=== PATIENT | female | born 1995 | race Caucasian/White ===

== ENCOUNTER 2021-08-27 15:53 | Outpatient (CLI) | payer BC, SELFPAY | END 2021-08-27 15:54 | disposition home or self-care (01) | LOC: LAB 15:58 | PROVIDERS: PCP Family Medicine; Visit Provider Clinical Nurse Specialist Adult Health | DX: Z11.8 Encounter for screening for other infectious and parasitic diseases (principal) | CPT/HCPCS: 87207 ==

== ENCOUNTER 2024-05-22 02:51 | Observation (INO) | payer SELFPAY ==
[2024-05-22] VITALS (27 sets, daily range): BP systolic 65–120; BP diastolic 42–74; PULSE 59–88; RESP 12–24; TEMP 36.2–36.8; O2SAT 92–100; BMI 20.9
--- NOTE | 2024-05-22 03:19 | USR_ITS ---
PROCEDURE INFORMATION: Exam: US Duplex Artery and Vein of the Abdominal and/or Reproductive Organs, Complete Exam date and time: 05/22/2024 4:50 AM Age: 29 years old Clinical indication: complicated by abdominal or pelvic pain; Lower; First trimester (<14 weeks 0 days); Gestational age or lmp: 13; Additional info: Pelvic pain, vag bleeding, TECHNIQUE: Imaging protocol: Real-time duplex ultrasound scan of the arterial and venous flow of the abdominal and/or reproductive organs with B-mode, color Doppler flow and spectral waveform analysis with image documentation. Exam focused on the region of clinical concern. Complete exam. Duplex exam was performed to evaluate for vascular conditions. COMPARISON: No relevant prior studies available. FINDINGS: No visible intra or extrauterine gestational sac. The endometrial echo complex is thickened and inhomogeneous in appearance, measuring up to 29 mm in thickness. Some of this appearance is likely secondary to blood/clot in the endometrial canal. Provided Color Doppler images do appear to show some areas of increased blood flow within the endometrium. Therefore, if the overall appearance is determined to represent a miscarriage, these findings could indicate retained products of conception. Clinical correlation needed. Cervical length evaluated with endovaginal scanning measures 3.0 cm. No definite cervical canal dilation on the provided images. There is a mild to moderate amount of free pelvic fluid, some of the fluid is fairly echogenic. There is a more complex appearing fluid in the cul-de-sac, measuring up to 3.5 cm in diameter. While nonspecific, this could represent blood/clot. The right ovary measures 24 x 15 x 18 mm, estimated volume 3.4 cc. The left ovary measures 25 x 16 x 20 mm, estimated volume 4.2 cc. Both ovaries appear essentially unremarkable. Ovarian blood flow was evaluated with color and spectral Doppler imaging. Arterial and venous blood flow detected within each ovary. Resistance index in the right ovary is 0.57. Resistance index in the left ovary is 0.60. The sonographic appearance alone is nonspecific. The differential diagnosis includes; an early viable intrauterine less than four to five weeks gestation; a miscarriage; as well as an occult ectopic . Close/appropriate clinical follow up, including HCG level follow-up is recommended. The urinary bladder was not completely evaluated/imaged at this time. PROCEDURE INFORMATION: Exam: US First Trimester, Transabdominal and US , Transvaginal Exam date and time: 05/22/2024 4:50 AM Age: 29 years old Clinical indication: complicated by abdominal or pelvic pain; Lower; First trimester (<14 weeks 0 days); Gestational age or lmp: 13; Additional info: Pelvic pain, vag bleeding, LABS AND CLINICAL REPORTS: Gestational age (Established): 13 w 0 d Estimated due date (Established): 11/27/2024 TECHNIQUE: Imaging protocol: Real-time transabdominal obstetrical ultrasound of the maternal pelvis and a first trimester , less than 14 weeks 0 days, with image documentation. Transvaginal imaging was used for better evaluation of the fetus, adnexa, and/or cervix. COMPARISON: No relevant prior studies available. FINDINGS: No visible intra or extrauterine gestational sac. The endometrial echo complex is thickened and inhomogeneous in appearance, measuring up to 29 mm in thickness. Some of this appearance is likely secondary to blood/clot in the endometrial canal. Provided Color Doppler images do appear to show some areas of increased blood flow within the endometrium. Therefore, if the overall appearance is determined to represent a miscarriage, these findings could indicate retained products of conception. Clinical correlation needed. Cervical length evaluated with endovaginal scanning measures 3.0 cm. No definite cervical canal dilation on the provided images. There is a mild to moderate amount of free pelvic fluid, some of the fluid is fairly echogenic. There is a more complex appearing fluid in the cul-de-sac, measuring up to 3.5 cm in diameter. While nonspecific, this could represent blood/clot. The right ovary measures 24 x 15 x 18 mm, estimated volume 3.4 cc. The left ovary measures 25 x 16 x 20 mm, estimated volume 4.2 cc. Both ovaries appear essentially unremarkable. Ovarian blood flow was evaluated with color and spectral Doppler imaging. Arterial and venous blood flow detected within each ovary. Resistance index in the right ovary is 0.57. Resistance index in the left ovary is 0.60. The sonographic appearance alone is nonspecific. The differential diagnosis includes; an early viable intrauterine less than four to five weeks gestation; a miscarriage; as well as an occult ectopic . Close/appropriate clinical follow up, including HCG level follow-up is recommended. The urinary bladder was not completely evaluated/imaged at this time. US/US OB <=14 wk fetus w transvag IMPRESSION: 1. No visible intra or extrauterine gestational sac. 2. Thickened and inhomogeneous endometrial echo complex, see additional details above. 3. Mild to moderate amount of somewhat echogenic free pelvic fluid, with more complex fluid/blood/clot suspected in the cul-de-sac. 4. See above discussion and recommendations. 5. Unremarkable ovaries. 6. Blood flow detected in each ovary. 7. Other details discussed above.
--- NOTE | 2024-05-22 03:20 | W.ED.PREGNAN ---
HPI - General: Chief complaint: OB/Uterine Contractions Stated complaint: Possible miscarage Bleed 12weeks Time Seen by Provider: 05/22/24 03:19 History of Present Illness: 29-year-old female G2, P1 at 12 weeks of . She was told on 05/09 via ultrasound that she did not have heart tones and that she was going to miscarry. She started bleeding 5 to 6 hours ago, quite heavily. She is having intense contractions at this point. She is feeling nauseated, faint, like she will pass out. Date of Last Menstrual Period: 02/22/24 Related Data Home Medications ?Medication ?Instructions ?Recorded ?Confirmed No Known Home Medications 12/02/23 12/02/23 Allergies Allergy/AdvReac Type Severity Reaction Status Date / Time No Known Allergies Allergy Verified 05/22/24 03:02 PFS ED PFSH: Social History Smoking and tobacco/nicotine status: never used tobacco/nicotine Female Reproductive History: Date of last menstrual period: 02/22/24 Physical Exam Const: GENERAL APPEARANCE: cooperative and ill appearing (Mildly) ORIENTATION/CONSCIOUSNESS: Yes awake, Yes oriented to person, Yes oriented to place and Yes oriented to time HENMT: COMMON NORMALS: normocephalic, atraumatic and Normal external nose present HEAD & SCALP: normocephalic and atraumatic FACE & SINUS: normal facial exam NOSE: Normal external nose present Eye: COMMON NORMALS: Equal, round and reactive pupils present and EOMs intact bilaterally PUPIL: Yes Equal, round and reactive pupils present Neck/C-Spine: GENERAL: Yes trachea midline Chest: CHEST: Yes Symmetrical chest wall rise Resp: COMMON NORMALS: normal respiratory effort, No use of accessory muscles and clear to auscultation bilaterally AUSCULTATION: clear to auscultation bilaterally Cardio: COMMON NORMALS: regular rate and regular rhythm RATE: regular rate RHYTHM: regular rhythm GI: COMMON NORMALS: Soft to palpation PALPATION: Yes Soft to palpation Neuro: SENSORIUM/ORIENTATION: Yes oriented to person, Yes oriented to place and Yes oriented to time Course Vital Signs: Vital signs: Vital Signs Temperature 98.3 F 05/22/24 02:56 Pulse Rate 63 05/22/24 04:01 Respiratory Rate 19 H 05/22/24 04:01 Blood Pressure 88/48 05/22/24 04:01 Pulse Oximetry 99 05/22/24 04:01 Oxygen Delivery Me thod Room Air 05/22/24 02:56 MDM - OB/Uterine Contractions Medical Decision Making This patient had a significant episode of vagal syncope, with heart rates in the mid 40s, and a blood pressure briefly of 50/20. Blood pressure and heart rate have normalized. Heart rates in the 60s now, with blood pressures in the mid 80s systolic. Hemoglobin is 13.5. White blood cell count is 10.3. Coags are normal. Large amounts of clot removed from vaginal vault on pelvic examination. Ultrasound shows quite a bit of fluid still present in the uterus. She is having strong contractions. With several episodes of hypotension here, and continued soft pressures despite 2 L bolus, she will be observed. Gynecology agrees to accept the patient for observation today. Lab Data 05/22/24 03:10 05/22/24 03:10 Laboratory Results WBC 10.37 10^3/uL (3.29-11.43) 05/22/24 03:10 RBC 4.34 10^6/uL (3.85-5.65) 05/22/24 03:10 Hgb 13.50 g/dL (11.27-16.99) 05/22/24 03:10 Hct 39.6 % (36-47) 05/22/24 03:10 MCV 91.2 fl (85-98) 05/22/24 03:10 MCH 31.1 pg (27-33) 05/22/24 03:10 MCHC 34.1 g/dL (30-55) 05/22/24 03:10 RDW 11.9 % (12.1-15.1) L 05/22/24 03:10 Plt Count 312 10^3/cmm (157-399) 05/22/24 03:10 MPV 9.6 fL (7.4-10.4) 05/22/24 03:10 Neut % (Auto) 76.7 % 05/22/24 03:10 Lymph % (Auto) 18.1 % 05/22/24 03:10 [place] % (Auto) 3.4 % 05/22/24 03:10 Eos % (Auto) 1.2 % 05/22/24 03:10 Baso % (Auto) 0.3 % 05/22/24 03:10 Neut # (Auto) 7.96 10^3/uL (1.8-7.7) H 05/22/24 03:10 Lymph # (Auto) 1.9 10^3/uL (0.8-4.8) 05/22/24 03:10 [place] # (Auto) 0.4 10^3/uL (0.2-0.9) 05/22/24 03:10 Eos # (Auto) 0.1 10^3/uL (0.0-0.8) 05/22/24 03:10 Baso # (Auto) 0.0 10^3/uL (0.0-0.1) 05/22/24 03:10 Nucleated RBC % (auto) 0 % 05/22/24 03:10 Nucleated RBCs # 0.0 /100WBC 05/22/24 03:10 PT 12.20 SECONDS (12.1-14.9) 05/22/24 03:10 INR 0.84 (0.8-1.2) 05/22/24 03:10 APTT 29.2 SECONDS (23.9-36.7) 05/22/24 03:10 Sodium 133 mmol/L (136-145) L 05/22/24 03:10 Potassium 3.8 mmol/L (3.5-5.1) 05/22/24 03:10 Chloride 98 mmol/L (98-107) 05/22/24 03:10 Carbon Dioxide 22 mmol/L (22-29) 05/22/24 03:10 Anion Gap 16.8 (5-19) 05/22/24 03:10 BUN 14 mg/dL (6-20) 05/22/24 03:10 Creatinine 0.6 mg/dL (0.5-0.9) 05/22/24 03:10 GFR Calculation 119.9 mL/min (90-130) 05/22/24 03:10 Glucose 115 mg/dL (65-115) 05/22/24 03:10 Calculated Osmolality 277 mOsm/kg (285-295) L 05/22/24 03:10 Calcium 9.3 mg/dL (8.5-10.5) 05/22/24 03:10 Total Bilirubin 0.2 mg/dL (0.15-1.2) 05/22/24 03:10 AST 16 U/L (0-32) 05/22/24 03:10 ALT 14 U/L (0-33) 05/22/24 03:10 Alkaline Phosphatase 83 U/L (35-105) 05/22/24 03:10 Total Protein 6.9 g/dL (6.6-8.7) 05/22/24 03:10 Albumin 4.4 g/dL (3.5-5.2) 05/22/24 03:10 Globulin 2.5 g/dL (1.3-4.6) 05/22/24 03:10 Ser , Semi-Qnt 3539.00 mIU/mL 05/22/24 03:10 Urine Color Red (Yellow) A 05/22/24 03:10 Urine Appearance Turbid (CLEAR) A 05/22/24 03:10 Urine pH Not Reportable 05/22/24 03:10 Ur Specific [place] Not Reportable 05/22/24 03:10 Urine Protein Not Reportable 05/22/24 03:10 Urine Glucose (UA) Not Reportable 05/22/24 03:10 Urine Ketones Not Reportable 05/22/24 03:10 Urine Blood Not Reportable 05/22/24 03:10 Urine Nitrate Not Reportable 05/22/24 03:10 Urine Bilirubin Not Reportable 05/22/24 03:10 Urine Urobilinogen Not Reportable 05/22/24 03:10 Ur Leukocyte Esterase Not Reportable 05/22/24 03:10 Urine RBC Too numerous to cnt /hpf (0-2) H 05/22/24 03:10 Urine WBC 0-4 /hpf (0-5) H 05/22/24 03:10 Ur Squamous Epith Cells 0-4 /hpf (0-5) H 05/22/24 03:10 Amorphous Sediment Not Reportable 05/22/24 03:10 Urine Bacteria Trace /hpf (NONE) 05/22/24 03:10 Blood Type O Positive 05/22/24 03:10 Rho(D) Type Rh positive 05/22/24 03:10 Antibody Screen Negative 05/22/24 03:10 XR interpretation done by ED provider, pending radiology final review Discharge Plan Discharge Patient Disposition: Placed in Observation Clinical Impression: Incomplete , Acute hypotension Condition: Stable Prescriptions: No Action No Known Home Medications Referrals: Oli Roche, [Primary Care Provider] - Print Language: Hebrew Coding Level of Care Code ED Felt Dyeing Machine Tender for Krystian Terry
[2024-05-22 03:24] LABS: Add Urine Microscopic? NO
[2024-05-22 03:25] LABS: Basophils % 0.3 %; Eosinophils # 0.1 10^3/uL (0.0-0.8); Eosinophils % 1.2 %; Hematocrit 39.6 % (36-47); Lymphocytes # 1.9 10^3/uL (0.8-4.8); Lymphocytes % 18.1 %; Mean Corpuscular HGB Conc 34.1 g/dL (30-55); Mean Corpuscular Hemoglobin 31.1 pg (27-33); Mean Corpuscular Volume 91.2 fl (85-98); Mean Platelet Volume 9.6 fL (7.4-10.4); Monocytes # 0.4 10^3/uL (0.2-0.9); Monocytes % 3.4 %; Neutrophils # 7.96 10^3/uL (1.8-7.7); Neutrophils % 76.7 %; Nucleated Red Blood Cells % 0 %; Platelet Count 312 10^3/cmm (157-399); Red Blood Count 4.34 10^6/uL (3.85-5.65); Red Cell Distribution Width 11.9 % (12.1-15.1); White Blood Count 10.37 10^3/uL (3.29-11.43)
[2024-05-22 03:31] LABS: INR 0.84 (0.8-1.2); Partial Thromboplastin Time 29.2 SECONDS (23.9-36.7)
[2024-05-22] MEDS: sodium chloride 0.9% 1,000 ML 999 ML IV (03:37)
[2024-05-22] MEDS: ondansetron 2 mg/ML SDV 2 mL 4 MG IVP (03:37)
[2024-05-22] MEDS: ketorolac 30 mg/mL INJ IVP (03:37)
[2024-05-22 03:38] LABS: Add Urine Culture? Yes; Bacteria Urine TRACE /hpf; RBC Urine TOO NUMEROUS TO CNT /hpf (0-2); Squamous Epithelial Cell Urine 0-4 /hpf (0-5); Urine Appearance Turbid (CLEAR); Urine Color Red (Yellow); WBC Urine 0-4 /hpf (0-5)
[2024-05-22 03:39] LABS: Charge for UA Resulting for Rev
[2024-05-22 03:48] LABS: Alanine Aminotransferase 14 U/L (0-33); Albumin Level 4.4 g/dL (3.5-5.2); Alkaline Phosphatase 83 U/L (35-105); Anion Gap 16.8 (5-19); Aspartate Amino Transferase 16 U/L (0-32); Blood Urea Nitrogen 14 mg/dL (6-20); Calcium 9.3 mg/dL (8.5-10.5); Carbon Dioxide 22 mmol/L (22-29); Chloride 98 mmol/L (98-107); Creatinine Clr Calc Pharmacy 131.5503; Globulin 2.5 g/dL (1.3-4.6); Glomerular Filtration Rate 119.9 mL/min (90-130); Glucose 115 mg/dL (65-115); Osmolality Calculated 277 mOsm/kg (285-295); Potassium 3.8 mmol/L (3.5-5.1); Sodium 133 mmol/L (136-145); Total Bilirubin 0.2 mg/dL (0.15-1.2); Total Protein 6.9 g/dL (6.6-8.7)
--- NOTE | 2024-05-22 04:21 | PC.NURSE ---
The nurse entered the room and observed that the patient appeared pallid and tremulous. The blood pressure measured 50/20. The registered nurse notified the physician. The patient was positioned in Trendelenburg, a second intravenous line was inserted, and 2 liters of fluid were administered by pressure bag.
--- NOTE | 2024-05-22 04:45 | PC.NURSE ---
The patient reports that she was 9 weeks and was informed during her last obstetric appointment that the fetus did not have?a heartbeat. The patient reports being informed of a potential miscarriage approximately two weeks ago on the and has now experienced significant bleeding this evening starting approx. 21:00. The patient is experiencing cramping as well. The patient was examined by midwives from [facility], who conducted an ultrasound that indicated she was experiencing a miscarriage.
[2024-05-22] MEDS: morphine 4 mg/mL SDV 1 mL IVP (04:54)
--- NOTE | 2024-05-22 05:51 | PC.NURSE ---
I prepared the room for a vaginal examination. Dr. Dempsey successfully excised multiple substantial tissue masses from the uterine orifice. Upon completion, I cleansed the patient and provided fresh blankets, while also removing any waste from the room, including soiled blankets stained with blood.
[2024-05-22] MEDS: fentaNYL 50 mcg/mL INJ 2mL IVP (05:54)
--- NOTE | 2024-05-22 09:32 | P.HP_ITS ---
Providers/Chief Complaint 2 Admitting Physician: Lupis Soriano DO Primary Care Provider: Oli Roche DO Chief Complaint: Possible miscarage Bleed 12weeks HPI ASSISTANT NEWS DIRECTOR History of Present Illness Valentín Ty is a 29 year old female G2, P1 admitted observation to labor and delivery after ER visit. LMP 02/22/2024 with ZARA 11/19/2024 by early outside ultrasound. Patient states at that time of ultrasound at a [facility] facility she was 9 weeks gestation with no heart activity being noted. Patient states she started bleeding heavily yesterday at 9 PM. She complains of passing large clots with her heavy flow with cramping. While being seen in the ER here at [facility] patient had several low blood pressure and near syncopal episodes. She was treated with IV fluids. Treatment options of waiting on spontaneous passage of clots and possible remaining products versus D&C to clear the uterus of clots and possible remaining products of conception have been reviewed in great detail with patient and . Ultrasound results of no viable noted but increased endometrial thickness and much blood and clots noted. Patient elects to proceed with D&C. Risk of bleeding, infection, perforation of the uterus have been reviewed. Possibility of pelvic organ injury if perforation occurs also reviewed. Patient understands and consents for procedure. Present Details Date of Last Menstrual Period: 02/22/24 Calculated Date of Delivery: 11/28/24 Gestational Age Based on Last Menstrual Period: 12 Review of Systems 2 General: Reports: 10 or more systems reviewed and unremarkable except in HPI and below Narrative: 29-year-old female awake and alert and o riented. Answers questions appropriately. Patient denies fever chills. Medications/Allergies Home Medications ?Medication ?Instructions ?Recorded ?Confirmed ?Last Taken ?Type No Known Home Medications 12/02/2311/13 Unknown History Allergies Allergy/AdvReac Type Severity Reaction Status Date / Time No Known Allergies Allergy Verified 05/22/24 03:02 PFS ASSISTANT NEWS DIRECTOR 2 [facility]: Medical History (Updated 05/22/24 @ 09:42 by Lupis Soriano DO) Incomplete Social History Smoking and tobacco/nicotine status: never used tobacco/nicotine Other Female Reproductive History: Date of Last Menstrual Period: 02/22/24 Menstrual flow: normal/abnormal: normal Sexual History: STD History Comment: None History History History 2 2 Term 1 Miscarriages/Ectopic 1 Living Children 1 Vitals/I&O/Wt Last Vital Signs Temp 98.1 F 05/22/24 06:52 Pulse 68 05/22/24 06:52 Resp 18 05/22/24 06:52 BP 101/59 05/22/24 06:55 Pulse Ox 96 05/22/24 06:52 O2 Del Method Room Air 05/22/24 06:52 05/21/24 05/22/24 05/22/24 22:59 06:59 14:59 Intake Total 0 / 0 Balance 0 / 0 Weight last 48 hrs Weight 58.967 kg Physical Exam 2 Narrative: 29-year-old female alert and orient x 3 no acute distress. HENMT: COMMON NORMALS: normocephalic, moist oral mucous membranes and dentition normal Resp: COMMON NORMALS: normal respiratory effort and clear to auscultation bilaterally Cardio: COMMON NORMALS: S1 normal heart sound present, S2 normal heart sound present and No murmurs present (Cardio) Data 05/22/24 03:10 05/22/24 03:10 Results Labs OB ([facility]): 2 Obstetrics US 05/22/24 Blood Type O Positive 05/22/24 Antibody Screen Negative 05/22/24 Hct 39.6 % (36-47) 05/22/24 Hgb 13.50 g/dL (11.27-16.99) 05/22/24 Rho(D) Type Rh positive 05/22/24 Plt Count 312 10^3/cmm (157-399) 05/22/24 Ser , Semi-Qnt 3539.00 mIU/mL 05/22/24 Micro Urine Specimen 05/22/24 A&P Assessment and plan (1) 9 weeks gestation of : Nonviable 9-week gestation documented by outside ultrasound ([facility]) (2) Acute hypotension: (3) Incomplete : Schedule D&C in the OR. PDMP PDMP Reviewed: Not Reviewed Attestations 2 Medical Necessity Statement*: Patient admitted observation to OB for D&C for incomplete AB, (ultrasound documented) Coding Level of Care Code Acute Code for Chg Fwd Diagnoses 9 weeks gestation of Z3A.09 Acute hypotension I95.9 Incomplete O03.4
--- NOTE | 2024-05-22 09:42 | ANES.PREANE2 ---
Pre-Anesthetic Assessment Height/Weight: Height 1.68 m Weight 58.967 kg Temp Pulse Resp BP Pulse Ox O2 Del Method 98.1 F 68 18 101/59 96 Room Air 05/22/24 06:52 05/22/24 06:52 05/22/24 06:52 05/22/24 06:55 05/22/24 06:52 05/22/24 06:52 Operation Date: 05/22/24 10:40 Proposed Procedures p Dilation And Curettage (D&C)(Not Applicable) - Lupis Soriano DO Familial anesthetic complications: None Was Beta Pedro taken within 24 hours: N/A Was Clonidine taken within 24 hours: N/A Last intake: > 8hrs Social No alcohol and No tobacco Exam alert, oriented x 3, clear to auscultation bilaterally and regular rate & rhythm Airway Mallampati: Class I Dentition: full Anesthetic Plan ASA status: 1E Anesthesia: General Risk of > 500 ml blood loss (7ml/kg in children): No Medications/Allergies Home Medications ?Medication ?Instructions ?Recorded ?Confirmed ?Last Taken ?Type No Known Home Medications 12/02/23 12/02/23 Unknown History Allergies Allergy/AdvReac Type Severity Reaction Status Date / Time No Known Allergies Allergy Verified 05/22/24 03:02 [facility] Anesthesia Medical History (Updated 05/22/24 @ 09:42 by Lupis Soriano DO) Incomplete Social History Smoking and tobacco/nicotine status: never used tobacco/nicotine Female Reproductive History Date of last menstrual period: 02/22/24 Data Anesthesia 05/22/24 03:10 05/22/24 03:10 Short CBC 05/22/24 Range/Units 03:10 WBC 10.37 (3.29-11.43) 10^3/uL Hgb 13.50 (11.27-16.99) g/dL Hct 39.6 (36-47) % MCV 91.2 (85-98) fl Plt Count 312 (157-399) 10^3/cmm Neut % (Auto) 76.7 % Neut # (Auto) 7.96 H (1.8-7.7) 10^3/uL BMP 05/22/24 03:10 Sodium 133 L Potassium 3.8 Chloride 98 Carbon Dioxide 22 BUN 14 Creatinine 0.6 Glucose 115 Calcium 9.3 Liver Function 05/22/24 Range/Units 03:10 Total Bilirubin 0.2 (0.15-1.2) mg/dL AST 16 (0-32) U/L ALT 14 (0-33) U/L Alkaline Phosphatase 83 (35-105) U/L Albumin 4.4 (3.5-5.2) g/dL Urine 05/22/24 Range/Units 03:10 Urine Color Red A (Yellow) Urine Appearance Turbid A (CLEAR) Urine pH Not Reportable Ur Specific [place] Not Reportable Urine Protein Not Reportable Urine Glucose (UA) Not Reportable Urine Ketones Not Reportable Urine Nitrate Not Reportable Urine Bilirubin Not Reportable Ur Leukocyte Esterase Not Reportable Urine RBC Too numerous to cnt H (0-2) /hpf Urine WBC 0-4 H (0-5) /hpf Blood Bank 05/22/24 03:10 Blood Type O Positive Rho(D) Type Rh positive Antibody Screen Negative Coags 05/22/24 03:10 PT 12.20 INR 0.84 APTT 29.2 Cardiac Studies: No Data to Display
[2024-05-22] MEDS: sodium chloride 0.9% 1,000 ML 30 ML IV (09:59)
[2024-05-22] MEDS: ceFAZolin 2,000 mg SDV 2000 MG IVP (11:05)
--- NOTE | 2024-05-22 11:44 | PM.OP ---
Operative Report Date of procedure: May 22, 2024 Pre-op diagnosis: 1. 9-week incomplete 2. Acute blood loss 3. Hypotensive episode in the emergency room Post-op diagnosis: Incomplete Post-op findings: Incomplete with intrauterine products noted Procedure done: Suction D&C Specimens removed/disposition: Products of conception Surgeon: Lupis Soriano DO Anesthesia: General Estimated blood loss (mL): 50 Complications: None Findings: Products of conception Condition: stable Disposition: floor Brief History: 29-year-old female G2, P1 Ab1 seen in the emergency room for consultation for incomplete AB. Patient was seen in the emergency room with complaints of excessive vaginal bleeding. Patient had a outside OB ultrasound that documented a 9-week gestation with no heart activity. She had been told that this was nonviable to expect some bleeding for spontaneous miscarriage. Before presenting patient had passed a large amount of blood and blood clots. She complained of moderate cramping and continued bleeding. Patient's hemodynamic status was stable with a hemoglobin of 13, hypotensive episodes resolved with IV fluid bolus in the emergency room. Patient was counseled on options to continue to wait for spontaneous expelling of products or surgical D&C to remove uterine content. Patient elected to proceed with D&C. Procedure: Patient was taken to surgical suite after informed consent with risk and benefits being reviewed. Patient was placed in supine position and general anesthesia administered. Patient was then repositioned in dorsolithotomy position pelvis prepped and draped in the standard fashion. A speculum was placed in the vaginal vault and the anterior lip of the cervix grasped with a straight to tenaculum. A moderate amount of blood clots and products noted to be in the endocervical os. Using a ring forcep clots were removed from the cervix followed by suctioning of the uterus with a 10 disposable curette. Moderate amount of products were removed. Sharp curettage followed with no remnants of placenta being noted. Bleeding subsided to minimum. 10 units of Pitocin was added to the current infusing IV bag and given in a bolus manner. The uterus was massaged and firmed well. Ancef 2 g given IV piggyback for prophylaxis. Straight to tenaculum was removed from the cervix, a sponge stick used to put pressure over the tenaculum sites for hemostatic purposes. Vaginal speculum was removed, patient's pelvis cleansed and dried. Patient was repositioned and awakened in stable and satisfactory condition. Patient was then transported to recovery. Following recovery patient will be transported back to her room and discharged to home. Postop and discharge expectations have been reviewed with patient. Related Problem List Diagnoses (1) Incomplete : Status post suction D&C for incomplete AB.... (2) Acute hypotension: (3) 9 weeks gestation of :
--- NOTE | 2024-05-22 11:50 | ANE.PACU2 ---
Inpatient post-anesthesia follow up: Airway intact: Yes Vital signs: Temperature 97.7 F Pulse Rate 62 Respiratory Rate 16 Blood Pressure 97/59 Pulse Oximetry 99 Oxygen Delivery Me thod Room Air Oxygen Flow Rate 8 Fraction of Inspir ed Oxygen Hydration adequate: Yes Nausea and vomiting: No Pain level: 1 Mental status: Baseline
--- NOTE | 2024-05-22 12:12 | PC.NURSE ---
Pt denies pain, vitals as documented. Applying warm blankets eased shivers, no medication required recovery phase. Upon return to OB room pt's , father and other family as well as VAL Potts at bedside.
== END 2024-05-22 14:40 | disposition home or self-care (01) ==
LOC: ER 05:56 → OBGYN 06:03
PROVIDERS: Admitting Provider Obstetrics & Gynecology; Emergency Provider Emergency Medicine; PCP Family Medicine; Visit Provider Obstetrics & Gynecology
PROC: (CPT 59812; principal; 2024-05-22 10:20)
DX: O03.4 Incomplete spontaneous abortion without complication (principal); I95.9 Hypotension, unspecified
CPT/HCPCS: 59812; 36415; 76801; 76817; 80053; 81003; 84702; 85025; 85610; 85730; 86850; 86900; 87086; 88305; 96374; 96375; 99285; G0378; J0690; J1100; J1885; J2250; J2270; J2405; J2704; J3010; J7030